=== PATIENT | male | born 1990 | race Caucasian/White ===

== ENCOUNTER 2020-12-20 23:37 | Emergency (ER) | payer BC ==
[~2020-12-20] VITALS: Ht 182.9 cm; Wt 113.6 kg
[2020-12-21] MEDS ORDERED: ONDANSETRON PF 4 MG/2 ML VIAL. IVP ONE
[2020-12-21] MEDS ORDERED: MORPHINE SULFATE 4 MG/ML VIAL. IV ONE
[2020-12-21] MEDS ORDERED: IV NORMAL SALINE 1000ML BAG 1,000 ML IV ONE (00:15)
[2020-12-21 00:23] LABS: BASO # 0.1 x10^3/uL (0.0-0.2); BASO % 1 % (0-3); EOS # 0.6 x10^3/uL (0.0-0.7); EOS % 6 % (0-3); HEMATOCRIT 43.3 % (39.0-53.0); HEMOGLOBIN 14.8 g/dL (13.0-17.5); LYMPH # 3.4 x10^3/uL (1.0-4.8); LYMPH % 34 % (24-48); MEAN CORPUSCULAR HEMOGLOBIN 30 pg (25-35); MEAN CORPUSCULAR HGB CONC 34 g/dL (31-37); MEAN CORPUSCULAR VOLUME 87 fL (79-100); MONO # 0.8 x10^3/uL (0.0-1.1); MONO % 8 % (0-9); NEUT # 5.2 x10^3/uL (1.8-7.7); NEUT % 52 % (31-73); PLATELET COUNT 326 x10^3/uL (140-400); RED BLOOD COUNT 4.98 x10^6/uL (4.30-5.70); RED CELL DISTRIBUTION WIDTH 13.8 % (11.5-14.5)
[2020-12-21 00:25] LABS: BILIRUBIN,URINE NEGATIVE (NEG); CLARITY,URINE CLEAR; COLOR,URINE YELLOW; NITRITE,URINE NEGATIVE (NEG); PH,URINE 5.5 (<5.0-8.0); PROTEIN,URINE NEGATIVE (NEG-TRACE)
[2020-12-21] MEDS ORDERED: HYDROmorphone 2 MG/ML VIAL IVP ONE (00:30)
[2020-12-21 00:33] LABS: CREATININE 1.2 mg/dL (0.7-1.3); GFR 70.6; POTASSIUM 4.2 mmol/L (3.5-5.1)
[2020-12-21 00:35] LABS: BACTERIA,URINE 0 /HPF (0-FEW); BARBITURATES NEG (NEG); BENZODIAZEPINES NEG (NEG); CANNABINOIDS NEG (NEG); COCAINE NEG (NEG); METHADONE NEG (NEG); OPIATES NEG (NEG); PHENCYCLIDINE NEG (NEG)
[2020-12-21 00:37] LABS: AMPHETAMINE/METHAMPHETAMINE POS (NEG)
[2020-12-21 00:39] LABS: ALBUMIN 4.1 g/dL (3.4-5.0); ALBUMIN/GLOBULIN RATIO 1.3 (1.0-1.7); TOTAL BILIRUBIN 0.6 mg/dL (0.2-1.0); TOTAL PROTEIN 7.3 g/dL (6.4-8.2)
[2020-12-21] MEDS ORDERED: CONTRAST GIVEN. MC PRN (01:00)
[2020-12-21] MEDS ORDERED: IOHEXOL 300 MG/ML 100ML VIAL. IV ONE (01:00)
--- NOTE | 2020-12-21 01:22 | RAD ---
EXAM: CT ABDOMEN/PELVIS WITH CONTRAST. HISTORY: Right lower quadrant pain. TECHNIQUE: Computed tomography of the abdomen and pelvis was performed after the intravenous administ ration of iodinated contrast. One or more of the following individualized dose reduction techniques w ere utilized for this examination: 1. Automated exposure control. 2. Adjustment of the mA and/or kV according to patient size. 3. Use of iterative reconstruction technique. COMPARISON: None. FINDINGS: Lung windows through the visualized portions of the bases reveal mild atelectasis. Bone win dows reveal no suspicious lesions. Contrast enhancement is suboptimal, limiting parenchymal assessment. The appendix is not inflamed. Th ere are no inflammatory changes in the right lower quadrant or elsewhere. There is no small bowel obs truction. The liver, gallbladder, pancreas, adrenal glands and spleen are unremarkable. A right ureterovesical junction calculus measures 3 mm. The right kidney enhances less avidly than th e left consistent with acute obstruction. There is only mild pelvic caliectasis. Additional bilateral renal calculi measure 2 mm or less. IMPRESSION: 1. 3 mm right ureterovesical junction calculus with mild proximal obstructive findings. 2. Additional bilateral renal calculi measure 2 mm or less. Electronically signed by: Jack Pots MD (12/21/2020 1:19 AM) [facility]
[2020-12-21] MEDS ORDERED: KETOROLAC 15 MG/ML VIAL. IVP ONE (01:30)
[2020-12-21 01:49] VITALS: BP 162/77
[2020-12-21] MEDS ORDERED: TAMS0.4C97 PO (01:58)
--- NOTE | 2020-12-21 01:58 | ED.ADGEN ---
Past Medical History Past Medical History: No Pertinent History Past Surgical History: Other Additional Past Surgical Histo: back surgery x3 Smoking Status: Current Every Day Smoker Alcohol Use: None General Adult EDM: Chief Complaint: ABDOMINAL PAIN HPI: HPI: Patient is a 30 year old male coming in for right mid abdominal pain that radiates to his right back and to his testicles. Denies having any hematuria or dysuria. Has a history of multiple kidney stones. Patient states he has a family history of "spongy kidneys". Has urologist has not seen him in some time. No vomiting, diarrhea, constipation. Review of Systems: Review of Systems: All other systems within normal limits except for as noted in the HPI Current Medications: Current Medications Medications (Trade) Dose Ordered Sig/Josiah Start Time Stop Time Status Last Admin Dose Admin Hydromorphone HCl (Dilaudid) 2 mg 1X ONCE 12/21/20 00:30 12/21/20 00:31 DC 12/21/20 00:34 2 MG Info (CONTRAST GIVEN -- Rx MONITORING) 1 each PRN DAILY PRN 12/21/20 01:00 12/23/20 00:59 Iohexol (Omnipaque 300 Mg/ml) 75 ml 1X ONCE 12/21/20 01:00 12/21/20 01:01 DC 12/21/20 01:02 75 ML Ketorolac Tromethamine (Toradol 15mg Vial) 30 mg 1X ONCE 12/21/20 01:30 12/21/20 01:31 DC 12/21/20 01:42 30 MG Morphine Sulfate (Morphine Sulfate) 4 mg 1X ONCE 12/21/20 00:00 12/21/20 00:02 DC 12/21/20 00:10 4 MG Ondansetron HCl (Zofran) 4 mg 1X ONCE 12/21/20 00:00 12/21/20 00:02 DC 12/21/20 00:11 4 MG Oxycodone/ Acetaminophen (Percocet 10/325) 1 tab 1X ONCE 12/21/20 02:00 12/21/20 02:01 Sodium Chloride 1,000 ml @ 1,000 mls/hr 1X ONCE 12/21/20 00:15 12/21/20 01:14 DC 12/21/20 00:11 1,000 MLS/HR Tamsulosin HCl (Flomax) 0.4 mg 1X ONCE 12/21/20 02:00 12/21/20 02:01 Allergies: Allergies: Allergies Coded Allergies Type Severity Reaction Last Updated Verified No Known Drug Allergies 12/21/20 No Physical Exam: PE: Constitutional: Well developed, well nourished, no acute distress, non-toxic appearance. [] HENT: Normocephalic, atraumatic, bilateral external ears normal, nose normal. [ ] Eyes: PERRLA, conjunctiva normal, no discharge. [] Neck: No rigidity, supple, no stridor. [] Cardiovascular: Regular rate and rhythm, brisk cap refill [] Lungs & Thorax: Non labored symmetric respirations, no tachypnea or respiratory distress [] Abdomen: Soft, nondistended. Skin: Warm, dry, no erythema, no rash. [] Back: Unremarkable Extremities: No deformities, range of motion grossly intact, no lower extremity edema [] Neurologic: Alert and oriented X 3, no focal deficits noted. [] Psychologic: Affect normal, judgement normal, mood normal. [] Current Patient Data: Labs: Laboratory Tests Test 12/21/20 00:01 12/21/20 00:05 White Blood Count 10.0 x10^3/uL (4.0-11.0) Red Blood Count 4.98 x10^6/uL (4.30-5.70) Hemoglobin 14.8 g/dL (13.0-17.5) Hematocrit 43.3 % (39.0-53.0) Mean Corpuscular Volume 87 fL (79-100) Mean Corpuscular Hemoglobin 30 pg (25-35) Mean Corpuscular Hemoglobin Concent 34 g/dL (31-37) Red Cell Distribution Width 13.8 % (11.5-14.5) Platelet Count 326 x10^3/uL (140-400) Neutrophils (%) (Auto) 52 % (31-73) Lymphocytes (%) (Auto) 34 % (24-48) Monocytes (%) (Auto) 8 % (0-9) Eosinophils (%) (Auto) 6 % (0-3) H Basophils (%) (Auto) 1 % (0-3) Neutrophils # (Auto) 5.2 x10^3/uL (1.8-7.7) Lymphocytes # (Auto) 3.4 x10^3/uL (1.0-4.8) Monocytes # (Auto) 0.8 x10^3/uL (0.0-1.1) Eosinophils # (Auto) 0.6 x10^3/uL (0.0-0.7) Basophils # (Auto) 0.1 x10^3/uL (0.0-0.2) Sodium Level 143 mmol/L (136-145) Potassium Level 4.2 mmol/L (3.5-5.1) Chloride Level 107 mmol/L (98-107) Carbon Dioxide Level 26 mmol/L (21-32) Anion Gap 10 (6-14) Blood Urea Nitrogen 14 mg/dL (8-26) Creatinine 1.2 mg/dL (0.7-1.3) Estimated GFR (Cockcroft-Gault) 70.6 BUN/Creatinine Ratio 12 (6-20) Glucose Level 93 mg/dL (70-99) Calcium Level 9.0 mg/dL (8.5-10.1) Total Bilirubin 0.6 mg/dL (0.2-1.0) Aspartate Amino Transferase (AST) 30 U/L (15-37) Alanine Aminotransferase (ALT) 67 U/L (16-63) H Alkaline Phosphatase 57 U/L (46-116) Total Protein 7.3 g/dL (6.4-8.2) Albumin 4.1 g/dL (3.4-5.0) Albumin/Globulin Ratio 1.3 (1.0-1.7) Lipase 170 U/L (73-393) Ethyl Alcohol Level < 10 mg/dL (0-10) Urine Collection Type Unknown Urine Color Yellow Urine Clarity Clear Urine pH 5.5 (<5.0-8.0) Urine Specific [place] 1.025 (1.000-1.030) Urine Protein Negative mg/dL (NEG-TRACE) Urine Glucose (UA) Negative mg/dL (NEG) Urine Ketones (Stick) Negative mg/dL (NEG) Urine Blood Large (NEG) Urine Nitrite Negative (NEG) Urine Bilirubin Negative (NEG) Urine Urobilinogen Dipstick 1.0 mg/dL (0.2 mg/dL) Urine Leukocyte Esterase Negative (NEG) Urine RBC 11-20 /HPF (0-2) Urine WBC 1-4 /HPF (0-4) Urine Squamous Epithelial Cells Occ /LPF Urine Bacteria 0 /HPF (0-FEW) Urine Mucus Slight /LPF Urine Opiates Screen Neg (NEG) Urine Methadone Screen Neg (NEG) Urine Barbiturates Neg (NEG) Urine Phencyclidine Screen Neg (NEG) Urine Amphetamine/Methamphetamine Pos (NEG) Urine Benzodiazepines Screen Neg (NEG) Urine Cocaine Screen Neg (NEG) Urine Cannabinoids Screen Neg (NEG) Urine Ethyl Alcohol Neg (NEG) Laboratory Tests 12/21/20 00:01 Laboratory Tests 12/21/20 00:01 Vital Signs: Vital Signs Date Time Temp Pulse Resp B/P (MAP) Pulse Ox O2 Delivery O2 Flow Rate FiO2 12/21/20 00:49 83 26 173/136 (148) 98 Room Air 12/21/20 00:13 97.7 97.7 EKG: EKG: [] Heart Score: C/O Chest Pain: No Risk Factors: Risk Factors: DM, Current or recent (<one month) smoker, HTN, HLP, family history of CAD, obesity. Risk Scores: Score 0 - 3: 2.5% MACE over next 6 weeks - Discharge Home Score 4 - 6: 20.3% MACE over next 6 weeks - Admit for Clinical Observation Score 7 - 10: 72.7% MACE over next 6 weeks - Early Invasive Strategies Radiology/Procedures: Radiology/Procedures: EXAM: CT ABDOMEN/PELVIS WITH CONTRAST. HISTORY: Right lower quadrant pain. TECHNIQUE: Computed tomography of the abdomen and pelvis was performed after the intravenous administration of iodinated contrast. One or more of the following individualized dose reduction techniques were utilized for this examination: 1. Automated exposure control. 2. Adjustment of the mA and/or kV according to patient size. 3. Use of iterative reconstruction technique. COMPARISON: None. FINDINGS: Lung windows through the visualized portions of the bases reveal mild atelectasis. Bone windows reveal no suspicious lesions. Contrast enhancement is suboptimal, limiting parenchymal assessment. The appendix is not inflamed. There are no inflammatory changes in the right lower quadrant or elsewhere. There is no small bowel obstruction. The liver, gallbladder, pancreas, adrenal glands and spleen are unremarkable. A right ureterovesical junction calculus measures 3 mm. The right kidney enhances less avidly than the left consistent with acute obstruction. There is only mild pelvic caliectasis. Additional bilateral renal calculi measure 2 mm or less. IMPRESSION: 1. 3 mm right ureterovesical junction calculus with mild proximal obstructive findings. 2. Additional bilateral renal calculi measure 2 mm or less.[] Course & Med Decision Making: Course & Med Decision Making Pertinent Labs and Imaging studies reviewed. (See chart for details) [] Dragon Disclaimer: Dragon Disclaimer: This electronic medical record was generated, in whole or in part, using a voice recognition dictation system. Departure Departure Impression: Primary Impression: Kidney stone on right side Disposition: HOME / SELF CARE / HOMELESS Condition: STABLE Referrals: NO PCP (PCP) Patient Instructions: Diet for Kidney Stones Scripts Ibuprofen (IBUPROFEN) 800 Mg Tablet 800 MG PO PRN Q8HRS PRN for INFLAMMATION, #20 TAB Prov: WOLF ESPANA MD 12/21/20 Oxycodone/Apap 10-325 (PERCOCET 10-325 MG TABLET ) 1 Each Tablet 1 TAB PO PRN Q6HRS PRN for PAIN for 5 Days, #20 TAB 0 Refills Prov: WOLF ESPANA MD 12/21/20 Tamsulosin Hcl (FLOMAX) 0.4 Mg Cap.er.24h 1 CAP PO DAILY for kidney stone for 10 Days, #10 CAP 11 Refills Prov: WOLF ESPANA MD 12/21/20 WOLF ESPANA MD December 21, 2020 01:58
[2020-12-21] MEDS ORDERED: OXYC1TAB22 PO (02:00)
[2020-12-21] MEDS ORDERED: IBUP-1060 PO (02:00)
[2020-12-21] MEDS ORDERED: oxyCODONE/APAP 10/325 1 TAB TABLET PO ONE (02:00)
[2020-12-21] MEDS ORDERED: TAMSULOSIN 0.4 MG CAP.ER.24H. PO ONE (02:00)
== END 2020-12-21 02:18 | disposition home or self-care (01) ==
LOC: ER 23:37
DX: N20.0 Calculus of kidney (principal); F17.200 Nicotine dependence, unspecified, uncomplicated
CPT/HCPCS: 36415; 74177; 80053; 80307; 81001; 83690; 85025; 96361; 96374; 96375; 99285; G0480; J1170; J1885; J2270; J2405; J7030; Q9967

== ENCOUNTER 2020-12-31 10:33 | Emergency (ER) | payer BC ==
[~2020-12-31] VITALS: Ht 182.9 cm; Wt 91.0 kg
[~2020-12-31 10:33] MED LIST: IBUP-1060 PO; OXYC1TAB22 PO; TAMS0.4C97 PO
[2020-12-31 12:51] VITALS: BP 145/65
[2020-12-31] MEDS ORDERED: SULF1TAB24 PO (12:53)
[2020-12-31] MEDS ORDERED: CEPH500C PO (12:53)
--- NOTE | 2020-12-31 12:57 | PHYS DOC ---
Past Medical History Past Medical History: No Pertinent History Past Surgical History: Other Additional Past Surgical Histo: back surgery x3 Smoking Status: Current Every Day Smoker Alcohol Use: None General Adult EDM: Chief Complaint: INSECT BITE HPI: HPI: 30-year-old male past medical history significant for obesity and history of pilonidal abscess, presents the ED with complaints of red, warm rash of her left forearm that started 2 days ago. Patient reports he has dry skin and believes the injury was due to scratching his skin-no recall of any bug/dog/cat/mammalian bites. Patient is right-hand dominant. Tetanus updated 4 years ago. No known history of MRSA. Believes he injured his arm due to scratching it. States his gf is an nurse and referred him here. Rash was only 3cm wide yesterday. Pt states "I've always had a fast heart rate." EMR reviewed patient's rate was 8310 days ago when seen in ED. Review of Systems: Review of Systems: Constitutional: Denies fever or chills. [] Eyes: Denies change in visual acuity. [] HENT: Denies nasal congestion or sore throat. [] Respiratory: Denies cough or shortness of breath. [] Cardiovascular: Denies chest pain or edema. [] GI: Denies abdominal pain, nausea, vomiting, bloody stools or diarrhea. [] : Denies dysuria or hematuria Musculoskeletal: Denies back pain or joint pain. [] Integument: Denies diaphoresis or sinusitis Neurologic: Denies headache, focal weakness or sensory changes. [] Endocrine: Denies polyuria or polydipsia. [] Lymphatic: Denies swollen glands. [] Psychiatric: Denies depression or anxiety. [] Heart Score: C/O Chest Pain: No Risk Factors: Risk Factors: DM, Current or recent (<one month) smoker, HTN, HLP, family history of CAD, obesity. Risk Scores: Score 0 - 3: 2.5% MACE over next 6 weeks - Discharge Home Score 4 - 6: 20.3% MACE over next 6 weeks - Admit for Clinical Observation Score 7 - 10: 72.7% MACE over next 6 weeks - Early Invasive Strategies Allergies: Allergies: Allergies Coded Allergies Type Severity Reaction Last Updated Verified No Known Drug Allergies 12/21/20 No Physical Exam: PE: Constitutional: Well developed, well nourished, no acute distress, non-toxic appearance, obese HENT: Normocephalic, atraumatic, Eyes: EOMI, conjunctiva normal, no discharge. Neck: Normal range of motion, supple, Cardiovascular: S1/2 present, HR 102 and 94 during my exam Lungs & Thorax: Speaking in full sentences, bilateral equal chest rise, no tachypnea or increased work of breathing Abdomen: soft, no tenderness, Skin: Warm, dry, 12 x 6 cm area of erythema and increased warmth over dorsal aspect of left forearm, no underlying fluctuance or subcutaneous emphysema, normal radial brachial pulses bilaterally, Back: No midline pain, no rash, no pilonidal abscess Extremities: No tenderness, no cyanosis, no lower extremity edema Neurologic: Alert and oriented X 3, normal motor function, normal sensory function, no focal deficits noted. [] Psychologic: Affect normal, judgement normal, mood normal. [] EKG: EKG: [] Radiology/Procedures: Radiology/Procedures: [] Course & Med Decision Making: Course & Med Decision Making Pertinent Labs and Imaging studies reviewed. (See chart for details) Concern for left forearm cellulitis approximately 12 x 6 cm-does not cross over any joints, does not involve wrist or left elbow joint. Radial brachial pulse intact with normal skin turgor and cap refill less than 1 second. Will cover for community-acquired MRSA, recommend warm compresses (was educated on possibility of abscess formation vs compartment syndrome) pt denies any cat/dog/mammalian bites. Reports Tetanus is UTD. Will discharge home with stri ct ED return precautions were given for worsening rash, fever, lethargy, confusion, neurologic deficits, compartment syndrome or rash involving joint. Encouraged urgent outpatient follow-up with PMD/wound care for wound check in 48 hours. Life-threatening processes were considered but are low suspicion at this time, given history, physical exam and ED workup. Pt was educated on all prescription medications and adverse effects. All patient's questions were answered and pt was stable at time of discharge. Life/limb-threatening differential includes but is not limited to, erythema multiforme, murillo-joni syndrome, toxic epidermal necrolysis, staphylococcal scalded skin syndrome, necrotizing fasciitis/myositis/cellulitis, purpura fulminans, heparin or warfarin induced skin necrosis, angioedema, anaphylaxis drug rash, disseminated intravascular coagulation, disseminated gonococcal disease, vasculitis, septicemia, petechial disorder or coagulopathy, viral exanthem, Kawasaki's disease or life-threatening burn requiring burn center management or escharotomy. I spoken with the patient and her caregivers. I explained the patient's cond ition, diagnoses and treatment plan based on the information available to me at this time. I have answered the patient and her caregiver's questions and addressed any concerns. The patient and her caregivers have a good understanding of patient's diagnosis, condition and treatment plan as can be expected at this point. Vital signs have been stable. Patient's condition is stable and appropriate for discharge from the emergency department. Patient will pursue further outpatient evaluation with primary care physician or other designated or consulting physician as outlined in the discharge instructions. The patient and/or caregivers are agreeable to this plan of care and follow-up instructions have been explained in detail. The patient and/or caregivers have received these instructions in written form and have expressed an understanding of the discharge instructions. The patient and/or caregivers are aware that any significant change of condition or worsening of symptoms should prompt immediate return to this or the closest emergency department or call to [facility] Disclaimer: Fei Disclaimer: This electronic medical record was generated, in whole or in part, using a voice recognition dictation system. Departure Departure Impression: Primary Impression: Cellulitis of left forearm Disposition: 01 HOME / SELF CARE / HOMELESS Condition: IMPROVED Referrals: NO PCP (PCP) Follow-up in 48 hours for wound check with your PCP or FOLLOW UP WITH FAMILY MEDICINE: [address] [place] [address] Patient Instructions: Cellulitis, Community-Associated MRSA Additional Instructions: FOLLOW UP WITH WOUND CARE: Wound check in 48 hours [facility] [address], [address] [place] [address] EMERGENCY DEPARTMENT GENERAL DISCHARGE INSTRUCTIONS Thank you for coming to [facility] Emergency Department (ED) today and trusting us with you care. We trust that you had a positive experience in our Emergency Department. If you wish to speak to the department management, you may call the Director at [phone]. YOUR FOLLOW UP INSTRUCTIONS ARE FOLLOWS: 1. Do you have a private Doctor? If you do not have a private doctor, please ask for a resource list of physicians or clinics that may be able to assist you with follow up care. 2. The Emergency Physicain has interpreted your x-rays. The X-Ray specialist will also review them. If there is a change in the findings, you will be notified in 48 hours when at all possible. 3. A lab test or culture has been done, your results will be reviewed and you will be notified if you need a change in treatment. ADDITIONAL INSTRUCTIONS AND INFORMATION: 1. Your care today has been supervised by a physician who is specially trained in emergency care. Many problems require more than one evaluation for a complete diagnosis and treatment. We recommend that you schedule your follow up appointment as recommended to ensure complete treatment of you illness or injury. If you are unable to obtain follow up care and continue to have a problem, or if your condition worsens, we recommend that you return to the ED. 2. We are not able to safely determine your condition over the phone nor are we able to give sound medical advice over the phone. For these safety reasons, if you call for medical advice we will ask you to come to the ED for further evaluation. 3. If you have any questions regarding these discharge instructions please call the ED at [phone]. SAFETY INFORMATION: In the interest of safety, wellness, and injury prevention; we encourage you to wear your sealbelt, if you smoke; quite smoking, and we encourage family to use a protective helmet for bicycling and other sporting events that present an increased risk for head injury. IF YOUR SYMPTOMS WORSEN OR NEW SYMPTOMS DEVELOP, OR YOU HAVE CONCERNS ABOUT YOUR CONDITION; OR IF YOUR CONDITION WORSENS WHILE YOU ARE WAITING FOR YOUR FOLLOW UP APPOINTMENT; EITHER CONTACT YOUR PRIMARY CARE DOCTOR, THE PHYSICIAN WHOSE NAME AND NUMBER YOU WERE GIVEN, OR RETURN TO THE ED IMMEDIATELY. Scripts Sulfamethoxazole/Trimethoprim (BACTRIM DS TABLET) 1 Each Tablet 1 TAB PO BID for infection for 10 Days, #20 TAB Prov: GAURANG MUNGUIA DO 12/31/20 Cephalexin (CEPHALEXIN) 500 Mg Capsule 1 CAP PO QID for 10 Days, #40 CAP Prov: GAURANG MUNGUIA DO 12/31/20 GAURANG MUNGUIA DO December 31, 2020 12:57
== END 2020-12-31 13:01 | disposition home or self-care (01) ==
LOC: ER 10:33
DX: L03.114 Cellulitis of left upper limb (principal); F17.200 Nicotine dependence, unspecified, uncomplicated
CPT/HCPCS: 99283